=== PATIENT | male | born 1990 | race Caucasian/White ===

== ENCOUNTER 2017-05-26 16:46 | Observation (INO) | payer MEDICAID ==
[~2017-05-26] VITALS: Ht 167.6 cm; Wt 68.5 kg
[~2017-05-26 16:46] MED LIST: ALPR1TAB2 PO; BUPR-173 PO; BUPR100T6 PO; BUPR150T73 PO; BUPR8TAB SL; CARB100T3 PO; CLON2TAB PO; MIRT15TA PO; ZOLP10TA PO
[2017-05-26] MEDS ORDERED: LORazepam 1MG TABLET PO ONE (17:30)
[2017-05-26] MEDS ORDERED: LORazepam 1MG TABLET ONE (17:44)
[2017-05-26 17:58] LABS: HEMOGLOBIN 16.1 g/dL (13.7-18.0)
[2017-05-26 18:08] LABS: ASPARTATE AMINO TRANSFERASE 25 U/L (15-37); BLOOD UREA NITROGEN 15 mg/dL (7-18)
[2017-05-26 18:09] LABS: ACETAMINOPHEN < 2 mcg/mL (10-30)
[2017-05-26 18:10] LABS: DAU SCREEN DISCLAIMER
[2017-05-26] MEDS ORDERED: BUPR1FIL3 PO (20:38)
[2017-05-26] MEDS ORDERED: ZOLP10TA PO (20:39)
[2017-05-26] MEDS ORDERED: ZOLPIDEM 10MG TABLET PO PRN (21:00)
[2017-05-26] MEDS ORDERED: GABAPENTIN 100 MG CAPSULE PO ONE (21:00)
[2017-05-26] MEDS ORDERED: ZIPRASIDONE 20MG CAPSULE PO PRN (21:00)
[2017-05-26] MEDS ORDERED: ONDANSETRON ODT 4 MG PO PRN (21:00)
[2017-05-26] MEDS ORDERED: ZIPRASIDONE 20 MG INJ IM PRN (21:00)
[2017-05-26] MEDS ORDERED: ACETAMINOPHEN 325 MG TABLET PO PRN (21:00)
[2017-05-26] MEDS ORDERED: METHADONE 5 MG TABLET PO SCH (21:00)
[2017-05-26] MEDS: ALPRazolam 1MG TABLET PO SCH (23:29)
[2017-05-26] MEDS: NICOTINE 14MG/24 HR PATCH.TD24 TD SCH (23:29)
[2017-05-26] MEDS: METHADONE 10 MG TABLET PO SCH (23:29)
[2017-05-27 07:40] VITALS: BP 122/73
[2017-05-27] MEDS: ALPRazolam 1MG TABLET PO SCH ×3 (08:46→20:14)
[2017-05-27] MEDS: METHADONE 10 MG TABLET PO SCH ×3 (08:46→20:14)
[2017-05-27] MEDS: BUPROPION SR 150 MG TABLET PO SCH (08:47)
[2017-05-27 19:35] VITALS: BP 99/53
[2017-05-27] MEDS: NICOTINE 14MG/24 HR PATCH.TD24 TD SCH (20:14)
[2017-05-27] MEDS: ZOLPIDEM 5MG TABLET PO PRN (23:32)
[2017-05-28 08:21] VITALS: BP 99/53
[2017-05-28] MEDS: BUPROPION SR 150 MG TABLET PO SCH (09:00)
[2017-05-28] MEDS: ALPRazolam 1MG TABLET PO SCH ×3 (09:34→20:02)
[2017-05-28] MEDS: FOLIC ACID 1 MG TABLET PO SCH (09:34)
[2017-05-28] MEDS: MULTIVITAMIN 1 TABLET PO SCH (09:34)
[2017-05-28] MEDS: METHADONE 10 MG TABLET PO SCH ×3 (09:34→20:03)
[2017-05-28] MEDS: THIAMINE 100MG TABLET PO SCH (09:34)
[2017-05-28 20:00] VITALS: BP 97/57
[2017-05-28] MEDS: NICOTINE 14MG/24 HR PATCH.TD24 TD SCH (20:03)
[2017-05-28] MEDS: ZOLPIDEM 5MG TABLET PO PRN (22:10)
[2017-05-28] MEDS: DOCUSATE 100 MG CAPSULE PO PRN (22:13)
[2017-05-29 08:45] VITALS: BP 109/65
[2017-05-29] MEDS: BUPROPION SR 150 MG TABLET PO SCH (09:00)
[2017-05-29] MEDS: ALPRazolam 1MG TABLET PO SCH ×3 (09:00→20:47)
[2017-05-29] MEDS: METHADONE 10 MG TABLET PO SCH ×3 (09:01→20:47)
[2017-05-29] MEDS: MULTIVITAMIN 1 TABLET PO SCH (09:01)
[2017-05-29] MEDS: THIAMINE 100MG TABLET PO SCH (09:01)
[2017-05-29] MEDS: FOLIC ACID 1 MG TABLET PO SCH (09:01)
[2017-05-29] MEDS: DOCUSATE 100 MG CAPSULE PO PRN (09:10)
[2017-05-29] MEDS: POLYETHYLENE GLYCOL 17 GM PACKET PO SCH (14:20)
[2017-05-29] MEDS ORDERED: ZIPRASIDONE 20MG CAPSULE PO PRN (15:00)
[2017-05-29] MEDS ORDERED: ACETAMINOPHEN 325 MG TABLET PO PRN (15:00)
[2017-05-29] MEDS ORDERED: ONDANSETRON ODT 4 MG PO PRN (15:00)
[2017-05-29] MEDS ORDERED: ZIPRASIDONE 20 MG INJ IM PRN (15:00)
[2017-05-29 20:42] VITALS: BP 120/50
[2017-05-29] MEDS: NICOTINE 14MG/24 HR PATCH.TD24 TD SCH (20:46)
[2017-05-29] MEDS: ZOLPIDEM 5MG TABLET PO PRN (20:47)
[2017-05-30 08:12] VITALS: BP 97/56
[2017-05-30] MEDS: MULTIVITAMIN 1 TABLET PO SCH (08:19)
[2017-05-30] MEDS: FOLIC ACID 1 MG TABLET PO SCH (08:19)
[2017-05-30] MEDS: ALPRazolam 1MG TABLET PO SCH (08:19)
[2017-05-30] MEDS: THIAMINE 100MG TABLET PO SCH (08:20)
[2017-05-30] MEDS: POLYETHYLENE GLYCOL 17 GM PACKET PO SCH (08:21)
[2017-05-30] MEDS: METHADONE 10 MG TABLET PO SCH (08:25)
[2017-05-30] MEDS: BUPROPION SR 150 MG TABLET PO SCH (08:25)
== END 2017-05-30 10:32 ==
LOC: ED 18:42 → SUATTDRO 20:47 → EDIP 21:23 → 3E 21:26
PROVIDERS: ADMIT Family Medicine; ATTEND Family Medicine
DX: R45.851 Suicidal ideations (principal); F10.10 Alcohol abuse, uncomplicated; F11.23 Opioid dependence with withdrawal; F32.9 Major depressive disorder, single episode, unspecified; K59.00 Constipation, unspecified; F17.210 Nicotine dependence, cigarettes, uncomplicated
CPT/HCPCS: 36415; 80053; 80307; 80329; 85025; 93005; 99285; G0378; G0480

== ENCOUNTER 2018-06-08 08:37 | Emergency (ER) | payer MEDICAID ==
[~2018-06-08] VITALS: Ht 167.6 cm; Wt 67.9 kg
[~2018-06-08 08:37] MED LIST changes: +BUPR1FIL3 PO
[2018-06-08] MEDS ORDERED: SODIUM CHLORIDE FLUSH 10ML SYR IVF ONE (10:00)
[2018-06-08 10:44] LABS: ALBUMIN 3.6 g/dL (3.4-5.0); ANION GAP 9 mmol/L (5-15); CALCIUM 9.4 mg/dL (8.5-10.1); CHLORIDE 99 mmol/L (98-107); CREATININE 0.85 mg/dL (0.7-1.3)
[2018-06-08 10:50] LABS: MEAN CORPUSCULAR HEMOGLOBIN 31.9 pg (27.5-34.5); MEAN CORPUSCULAR HGB CONC 34.6 g/dL (33.2-36.2); MEAN CORPUSCULAR VOLUME 92.2 fL (81-97); MEAN PLATELET VOLUME 6.9 fL (7.4-10.4); PLATELET COUNT 414 x10^3/uL (130-400); RED BLOOD COUNT 5.11 x10^6/uL (4.38-5.82); RED CELL DISTRIBUTION WIDTH 13.5 % (9.4-14.8)
[2018-06-08 10:54] VITALS: BP 120/78
[2018-06-08] MEDS ORDERED: MAGNESIUM CITRATE 300ML ORAL SOL PO ONE (11:00)
[2018-06-08 11:01] LABS: BASOPHILS # (AUTO) 0.05 x10^3/uL (0-0.1); BASOPHILS % (AUTO) 1 % (0-1); EOSINOPHILS # (AUTO) 0.08 x10^3/uL (0-0.4); EOSINOPHILS % (AUTO) 1 % (1-7); LYMPHOCYTES # (AUTO) 1.66 x10^3/uL (1-3.4); LYMPHOCYTES % (AUTO) 16 % (22-44); MD SCAN; MONOCYTES % (AUTO) 7 % (2-9); NEUTROPHILS # (AUTO) 7.88 x10^3/uL (1.8-6.8); NEUTROPHILS % (AUTO) 76 % (42-75)
== END 2018-06-08 11:52 | disposition left against medical advice (07) ==
LOC: ED 09:57
DX: T18.5XXA Foreign body in anus and rectum, initial encounter (principal); Z00.00 Encounter for general adult medical examination without abnormal findings; X58.XXXA Exposure to other specified factors, initial encounter; Y93.89 Activity, other specified; Y92.89 Other specified places as the place of occurrence of the external cause; Y99.8 Other external cause status
CPT/HCPCS: 36415; 74018; 80048; 82040; 85025; 99285

== ENCOUNTER 2019-09-22 01:05 | Emergency (ER) | payer MEDICAID, OTHER ==
[~2019-09-22] VITALS: Ht 172.7 cm; Wt 75.0 kg
[2019-09-22] MEDS ORDERED: NALOXONE 1 MG/ML, 2ML ONE (01:10)
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
[2019-09-22 01:22] LABS: BASOPHILS # (AUTO) 0.06 x10^3/uL (0-0.1); BASOPHILS % (AUTO) 1 % (0-1); EOSINOPHILS % (AUTO) 1 % (1-7); LYMPHOCYTES # (AUTO) 4.22 x10^3/uL (1-3.4); LYMPHOCYTES % (AUTO) 39 % (22-44); MD NO; MEAN CORPUSCULAR HEMOGLOBIN 31.5 pg (27.5-34.5); MEAN CORPUSCULAR HGB CONC 33.4 g/dL (33.2-36.2); MEAN CORPUSCULAR VOLUME 94.4 fL (81-97); MEAN PLATELET VOLUME 8.3 fL (7.4-10.4); MONOCYTES # (AUTO) 0.73 x10^3/uL (0.2-0.8); MONOCYTES % (AUTO) 7 % (2-9); NEUTROPHILS # (AUTO) 5.61 x10^3/uL (1.8-6.8); NEUTROPHILS % (AUTO) 52 % (42-75); PLATELET COUNT 362 x10^3/uL (130-400); RED BLOOD COUNT 5.05 x10^6/uL (4.38-5.82); RED CELL DISTRIBUTION WIDTH 13.5 % (9.4-14.8)
[2019-09-22 01:35] LABS: ALANINE AMINOTRANSFERASE 32 U/L (12-78); ALBUMIN 3.9 g/dL (3.4-5.0); ANION GAP 5 mmol/L (5-15); CALCIUM 8.8 mg/dL (8.5-10.1); CHLORIDE 103 mmol/L (98-107); CREATININE 1.19 mg/dL (0.7-1.3)
[2019-09-22 01:37] LABS: ALKALINE PHOSPHATASE 124 U/L (45-117); BILIRUBIN,TOTAL 0.2 mg/dL (0.2-1.0); TOTAL PROTEIN 7.8 g/dL (6.4-8.2)
[2019-09-22 01:39] LABS: SALICYLATE LEVEL < 1.7 mg/dL (2.8-20.0)
--- NOTE | 2019-09-22 02:05 | NUR ---
PT TO ROOM 39, REPORT RECEIVED FROM JEANETTE SIGALA. PT DROWSY BUT ARROUSABLE TO VOICE AND CAN CARRY CONVERSATION. PT REPORTS "THE LAST THING I REMEMBER IS SHOOTING UP" "IT WAS A MIX OF METH AND HEROIN- BUT MAYBE IT HAD FENTANYL IN IT TOO" "I FEEL SO DUMB". BP/SPO2/ECG MONITORING IN PLACE. SPO2 >90% ON 2L BY NC. RR 17. PT W STRONG COUGH ON COMMAND.
--- NOTE | 2019-09-22 02:06 | NUR ---
CALL FROM INDIVIDUAL WHO FOUND PATIENT, STATES SHE HAS ALL HIS BELONGINGS AND WILL BE DROPPING IT OFF.
--- NOTE | 2019-09-22 02:46 | NUR ---
BREAK RN: PT SLEEPING. AROUSES TO VERBAL STIMULI AND TOUCH. DROWSY. RESPIRATORY EFFORT STILL STRONG. SAT 98% ON 2LPM. WILL CONTINUE TO MONITOR.
--- NOTE | 2019-09-22 03:30 | NUR ---
PT RESTING IN GURNEY W EYES CLOSED. ARROUSABLE TO VOICE.
[2019-09-22 04:30] VITALS: BP 113/62
--- NOTE | 2019-09-22 04:31 | NUR ---
PT CONTINUES TO REST IN RNEY. EVEN/REGULAR RESPIRATIONS NOTED. SPO2 >90% ON 2L BY NC. RR WNL.
--- NOTE | 2019-09-22 04:54 | NUR ---
PT RESTING IN GURNEY W/ EYES CLOSED. MOSTLY DROWSY; PT REQUIRING PHYSICAL STIM FOR ARROUSAL BUT WILL OPEN EYES ON COMMAND. SPO2 >90% ON RA. RR EVEN/UNLABORED, RR 16. REPORT TO JEANETTE SIGALA
--- NOTE | 2019-09-22 05:12 | NUR ---
REPORT RECEIVED FROM JEANETTE MOREIRA. ASSUMED CARE OF PT.
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
--- NOTE | 2019-09-22 05:32 | NUR ---
Patient/Caregiver given discharge instructions and they have confirmed that they understand the instructions. Patient ambulatory with steady gait.
--- NOTE | 2019-09-22 06:53 | NUR ---
PT STILL SLEEPING IN THE LOBBY OF THE ER. THIS RN VERIFIED WITH PT THAT HE HAS A RIDE HOME. HE STATES "YES MY MOM IS COMING TO GET ME, I'M WAITING FOR HER. I'M JUST TIRED. WILL YOU GUYS LEAVE ME ALONE". THIS RN ALSO CLARIFIED INTENTIONS WITH OVERDOSE AND IF IT WAS AN ATTEMPT TO HARM HIMSELF, PT RESPONDS "NO, I WASN'T DOING THAT INTENTIONALLY, I'M AN ADDICT".
== END 2019-09-22 05:34 | disposition home or self-care (01) ==
LOC: ED 01:11
DX: T40.1X1A Poisoning by heroin, accidental (unintentional), initial encounter (principal); T42.4X1A Poisoning by benzodiazepines, accidental (unintentional), initial encounter; J96.01 Acute respiratory failure with hypoxia; G92 Toxic encephalopathy; F11.129 Opioid abuse with intoxication, unspecified; Z72.9 Problem related to lifestyle, unspecified; Y92.89 Other specified places as the place of occurrence of the external cause
CPT/HCPCS: 36415; 80053; 80307; 85025; 99291

== ENCOUNTER 2019-10-10 11:25 | Emergency (ER) | payer OTHER ==
[~2019-10-10] VITALS: Ht 167.6 cm; Wt 72.1 kg
[2019-10-10 11:29] VITALS: BP 116/87
[2019-10-10 13:13] LABS: BASOPHILS # (AUTO) 0.03 x10^3/uL (0-0.1); BASOPHILS % (AUTO) 0 % (0-1); EOSINOPHILS # (AUTO) 0.08 x10^3/uL (0-0.4); EOSINOPHILS % (AUTO) 1 % (1-7); LYMPHOCYTES # (AUTO) 2.45 x10^3/uL (1-3.4); LYMPHOCYTES % (AUTO) 23 % (22-44); MD NO; MEAN CORPUSCULAR HEMOGLOBIN 30.8 pg (27.5-34.5); MEAN CORPUSCULAR HGB CONC 33.7 g/dL (33.2-36.2); MEAN CORPUSCULAR VOLUME 91.5 fL (81-97); MEAN PLATELET VOLUME 7.4 fL (7.4-10.4); MONOCYTES # (AUTO) 0.62 x10^3/uL (0.2-0.8); MONOCYTES % (AUTO) 6 % (2-9); NEUTROPHILS % (AUTO) 71 % (42-75); PLATELET COUNT 489 x10^3/uL (130-400); RED BLOOD COUNT 5.06 x10^6/uL (4.38-5.82); RED CELL DISTRIBUTION WIDTH 13.2 % (9.4-14.8)
[2019-10-10 13:21] LABS: ALANINE AMINOTRANSFERASE 16 U/L (12-78); ALBUMIN 3.7 g/dL (3.4-5.0); ANION GAP 8 mmol/L (5-15); CALCIUM 9.2 mg/dL (8.5-10.1); CHLORIDE 98 mmol/L (98-107); CREATININE 0.82 mg/dL (0.7-1.3)
[2019-10-10 13:26] LABS: ALKALINE PHOSPHATASE 83 U/L (45-117); BILIRUBIN,TOTAL 0.5 mg/dL (0.2-1.0); TOTAL PROTEIN 8.4 g/dL (6.4-8.2); TROPONIN I < 0.015 ng/mL (0.000-0.045)
== END 2019-10-10 14:03 | disposition home or self-care (01) ==
LOC: ED 12:45
DX: B34.9 Viral infection, unspecified (principal); R09.89 Other specified symptoms and signs involving the circulatory and respiratory systems
CPT/HCPCS: 36415; 71046; 80053; 84484; 85025; 93005; 99284

== ENCOUNTER 2019-11-30 21:20 | Emergency (ER) | payer SELFPAY ==
[~2019-11-30] VITALS: Ht 167.6 cm; Wt 78.0 kg
[2019-11-30 21:25] VITALS: BP 168/87
--- NOTE | 2019-11-30 21:40 | NUR ---
ASSESSMENT MADE. CHART UP FOR MD TO SEE.
--- NOTE | 2019-11-30 22:22 | NUR ---
PATIENT ANXIOUS. LAST METH INTAKE ( SMOKED ) TODAY.
--- NOTE | 2019-11-30 22:23 | NUR ---
PA AT BEDSIDE FOR PATIENT EVALUATION.
[2019-11-30] MEDS ORDERED: LORazepam 2 MG/ML, 1ML ONE (22:36)
--- NOTE | 2019-11-30 22:51 | NUR ---
MEDICATED FOR ANXIETY. URINE SENT TO LAB.
[2019-11-30] MEDS ORDERED: LORazepam 2 MG/ML, 1ML IM ONE (23:00)
[2019-11-30 23:02] LABS: CULTURE INDICATED? YES; MICROSCOPIC INDICATED
[2019-11-30] MEDS ORDERED: AZITHROMYCIN 500 MG TABLET PO ONE (23:30)
[2019-11-30] MEDS ORDERED: CEFTRIAXONE 250 MG IM ONE (23:30)
[2019-11-30] MEDS ORDERED: AZITHROMYCIN 500 MG TABLET ONE (23:34)
[2019-11-30] MEDS ORDERED: CEFTRIAXONE 250 MG ONE (23:34)
== END 2019-12-01 00:29 | disposition home or self-care (01) ==
LOC: ED 22:54
DX: A56.01 Chlamydial cystitis and urethritis (principal); A54.9 Gonococcal infection, unspecified; N30.00 Acute cystitis without hematuria; F11.20 Opioid dependence, uncomplicated; F15.20 Other stimulant dependence, uncomplicated; J02.8 Acute pharyngitis due to other specified organisms; B97.89 Other viral agents as the cause of diseases classified elsewhere; F17.210 Nicotine dependence, cigarettes, uncomplicated
CPT/HCPCS: 81001; 87081; 87086; 87491; 87591; 87880; 96372; 99284; J0696; J2060

== ENCOUNTER 2020-05-16 12:36 | Emergency (ER) | payer MEDICAID ==
[~2020-05-16] VITALS: Ht 167.6 cm; Wt 70.0 kg
[2020-05-16 12:43] VITALS: BP 140/90
--- NOTE | 2020-05-16 12:52 | NUR ---
PT ON ALL ROOM MONITORING, SEE TRIAGE. PT STATES HE WOULD LIKE TO DO DETOX AND ASKING TO GO TO [facility]-BEEN THERE PRIOR AND SEES DR FLORES. CALL LIGHT WITHIN REACH.
--- NOTE | 2020-05-16 14:04 | NUR ---
GEM PROVIDED, CALL LIGHT WITHIN REACH. VSS.
--- NOTE | 2020-05-16 14:39 | NUR ---
VSS. PT FOR RECHECK.
--- NOTE | 2020-05-16 15:39 | NUR ---
MIRANDA LAGUNA APRN TO SEE PT.
--- NOTE | 2020-05-16 16:19 | NUR ---
TAXI VOUCHER PROVIDED, PT DISCHARGED TO [facility]. COPY OF EKG AND CXR READ PROVIDED TO SHOW MEDICAL CLEARANCE.
== END 2020-05-16 16:24 | disposition home or self-care (01) ==
LOC: ED 14:30
DX: R07.89 Other chest pain (principal); F41.1 Generalized anxiety disorder; F11.20 Opioid dependence, uncomplicated; I44.5 Left posterior fascicular block
CPT/HCPCS: 71045; 93005; 99283

== ENCOUNTER 2020-06-02 03:35 | Emergency (ER) | payer MEDICAID ==
[~2020-06-02] VITALS: Ht 167.6 cm; Wt 70.5 kg
--- NOTE | 2020-06-02 04:03 | NUR ---
PT STATES HE IS FEELING SUCIDAL. PLAN IS TO JUMP OFF OF A BUILDING. PAST SA OVERDOSE ON HEROIN "A FEW YEARS BACK" PT CHANGED INTO A GOWN AND ALL PT BELONGINGS TAKEN AND PLACED INTO TWO BELONGINGS BAGS IN LOCKER IN HALLWAY. PT MADE AWARE OF NEED FOR URINE SAMPLE. ROOM SECURED WITH GARAGE QUINONEZ DOWN. SITTER AT DOORWAY FOR FREQUENT CHECKS. PT CALM AND COOPERATIVE.
[2020-06-02] MEDS ORDERED: LISD50CA3 PO (04:10)
[2020-06-02] MEDS ORDERED: ALPR2TAB2 PO (04:10)
[2020-06-02] MEDS ORDERED: BUPR-86 PO (04:10)
[2020-06-02 04:20] LABS: BASOPHILS % (AUTO) 0 % (0-1); EOSINOPHILS # (AUTO) 0.07 x10^3/uL (0-0.4); EOSINOPHILS % (AUTO) 1 % (1-7); LYMPHOCYTES # (AUTO) 2.13 x10^3/uL (1-3.4); LYMPHOCYTES % (AUTO) 31 % (22-44); MD NO; MEAN CORPUSCULAR HEMOGLOBIN 31.2 pg (27.5-34.5); MEAN CORPUSCULAR HGB CONC 34.1 g/dL (33.2-36.2); MEAN CORPUSCULAR VOLUME 91.5 fL (81-97); MEAN PLATELET VOLUME 8.5 fL (7.4-10.4); MONOCYTES # (AUTO) 0.23 x10^3/uL (0.2-0.8); MONOCYTES % (AUTO) 3 % (2-9); NEUTROPHILS # (AUTO) 4.48 x10^3/uL (1.8-6.8); NEUTROPHILS % (AUTO) 65 % (42-75); PLATELET COUNT 248 x10^3/uL (130-400); RED BLOOD COUNT 4.43 x10^6/uL (4.38-5.82); RED CELL DISTRIBUTION WIDTH 13.2 % (9.4-14.8)
[2020-06-02 04:33] LABS: ALBUMIN 3.6 g/dL (3.4-5.0); ANION GAP 6 mmol/L (5-15); CALCIUM 8.3 mg/dL (8.5-10.1); CHLORIDE 108 mmol/L (98-107); CREATININE 0.74 mg/dL (0.7-1.3); SALICYLATE LEVEL < 1.7 mg/dL (2.8-20.0)
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
--- NOTE | 2020-06-02 05:58 | NUR ---
ASKED PT TO TRY AND URINATE FOR UA SAMPLE PT STATES "I CAN'T PEE, I DON'T HAVE TO GO, I DON'T KNOW WHAT TO TELL YOU."
--- NOTE | 2020-06-02 06:37 | NUR ---
PT GIVEN WATER AT REQUEST AND ERP OKAY. TELEPSYCH COMPUTER MOVED INTO ROOM. PT REMAINS IN VIEW OF THE SITTER.
--- NOTE | 2020-06-02 07:02 | NUR ---
BEDSIDE REPORT GIVEN TO JEANETTE BRADY.
--- NOTE | 2020-06-02 07:30 | NUR ---
PT SLEEPING. ALL ROOM EQUIPMENT SECURED BEHIND PULL DOWN DOORS AND IN DIRECT VIEW OF SITTER.
[2020-06-02 08:30] VITALS: BP 113/54
--- NOTE | 2020-06-02 08:44 | NUR ---
PT STATES HE HAS BEEN FEELING SUICIDAL FOR A FEW DAYS AND THAT HE CAME HERE SO HE CAN GO TO [place]. PT VS UPDATED AND GIVEN BREAKFAST. C/O FEELING LIKE HE IS AWAITING MENTAL HEALTH EVAL BY [facility]. PT WANTING TO KNOW IF WE WILL START HIM BACK ON MEDS BECAUSE HE IS CONCERNED ABOUT HAVING WITHDRAWALS, NOTING HE TAKES 2 MG XANAX TWICE DAILY. PROVIDED BREAKFAST.
--- NOTE | 2020-06-02 09:09 | NUR ---
SPOKE WITH DR HINES ABOUT PT WANTING TO START HOME MEDS AND HIS CONCERN OF HAVING WITHDRAWALS. DR HINES STATES HE WANTS TO WAIT UNTIL [facility] MANAGER EVALUATES PT THIS MORNING
--- NOTE | 2020-06-02 10:43 | NUR ---
AWAKE AND PROVIDED COFFEE. REMAINS UPTIGHT THAT HE IS NOT GETTING XANAX. CONTINUE TO TRY TO EXPLAIN TO PT THAT HE WILL BE SEEN SOON AND THAT ER MD WANTS TO WAIT UNTIL THEN TO GIVE ANY MEDS.
[2020-06-02] MEDS ORDERED: METHOCARBAMOL 500 MG TABLET ONE (11:51)
[2020-06-02] MEDS ORDERED: LORazepam 1MG TABLET ONE (11:51)
[2020-06-02] MEDS ORDERED: LORazepam 1MG TABLET PO SCH (12:00)
[2020-06-02] MEDS ORDERED: METHOCARBAMOL 500 MG TABLET PO PRN (12:00)
--- NOTE | 2020-06-02 12:01 | NUR ---
AFTER EVALUATED BY LILY MENDOZA ORDERED.
[2020-06-02 12:51] LABS: AMPHETAMINE SCREEN, URINE Positive (Negative); BARBITURATE SCREEN, URINE Negative (Negative); BENZODIAZEPINE SCREEN, URINE Negative (Negative); CANNABINOID SCREEN, URINE Negative (Negative); COCAINE SCREEN, URINE Negative (Negative); METHADONE SCREEN, URINE Negative (Negative); OPIATE SCREEN, URINE Positive (Negative)
--- NOTE | 2020-06-02 13:06 | NUR ---
PT WATCHING TV AND EATING LUNCH
--- NOTE | 2020-06-02 15:01 | NUR ---
TASK RN: PT MOVED TO ROOM 01.
--- NOTE | 2020-06-02 15:09 | NUR ---
RECIEVED REPORT FROM ALBERT REID. PT RESTING CALMLY IN BED A THIS TIME. NO STATED NEEDS WHEN PT MOVED TO ROOM. SITTER AT DOO. WILL CONTINUE TO MONITOR.
--- NOTE | 2020-06-02 16:36 | NUR ---
REPORT TO DEAN REID FOR ROOM 380
== END 2020-06-02 17:25 ==
LOC: ED 05:24
DX: R45.851 Suicidal ideations (principal); F15.10 Other stimulant abuse, uncomplicated; F11.10 Opioid abuse, uncomplicated; F17.210 Nicotine dependence, cigarettes, uncomplicated
CPT/HCPCS: 36415; 80048; 80307; 82040; 85025; 99406

== ENCOUNTER 2020-06-02 16:44 | Inpatient (IN) | payer MEDICAID ==
[~2020-06-02] VITALS: Ht 167.6 cm; Wt 70.5 kg
[~2020-06-02 16:44] MED LIST changes: +ALPR2TAB2 PO; +BUPR-86 PO; +LISD50CA3 PO
[2020-06-02 17:00] VITALS: BP 122/80
[2020-06-02] MEDS ORDERED: NICOTINE 21 MG/24 HR PATCH.TD24 ONE (17:09)
[2020-06-02] MEDS ORDERED: DOCUSATE 100 MG CAPSULE PO PRN (17:30)
[2020-06-02] MEDS ORDERED: BISACODYL 10 MG SUPP PR PRN (17:30)
[2020-06-02] MEDS ORDERED: POLYETHYLENE GLYCOL 17 GM PACKET PO PRN (17:30)
[2020-06-02] MEDS: NICOTINE 21 MG/24 HR PATCH.TD24 TD SCH (17:30)
[2020-06-02] MEDS ORDERED: PLEASE ENTER HEIGHT AND WEIGHT MC SCH (17:30)
[2020-06-02] MEDS ORDERED: ALPRazolam 1MG TAB PO ONE (18:30)
[2020-06-02 19:55] VITALS: BP 130/79
[2020-06-02 20:02] LABS: MICROSCOPIC NOT IND
[2020-06-02] MEDS: ONDANSETRON ODT 4 MG PO PRN (21:59)
[2020-06-02] MEDS: ACETAMINOPHEN 325 MG TABLET PO PRN (21:59)
[2020-06-02] MEDS: HYDROXYZINE PAMOATE 50MG CAP PO PRN (21:59)
[2020-06-03] MEDS: ONDANSETRON ODT 4 MG PO PRN (03:58)
[2020-06-03] MEDS: HYDROXYZINE PAMOATE 50MG CAP PO PRN (03:58)
[2020-06-03] MEDS: ACETAMINOPHEN 325 MG TABLET PO PRN (03:58)
[2020-06-03 06:34] LABS: CHOL/HDL RATIO 2.7; FREE T4 (FREE THYROXINE) 1.03 ng/dL (0.76-1.46); LDL/HDL RATIO 1.3 (0.5-3.0)
[2020-06-03] MEDS ORDERED: METHOCARBAMOL 500 MG TABLET ONE (09:08)
[2020-06-03] MEDS ORDERED: LORazepam 1MG TABLET ONE (09:08)
[2020-06-03] MEDS ORDERED: METHOCARBAMOL 500 MG TABLET PO PRN (09:30)
[2020-06-03] MEDS ORDERED: LORazepam 1MG TABLET PO PRN (09:30)
[2020-06-03] MEDS ORDERED: NICOTINE 21 MG/24 HR PATCH.TD24 TD ONE (11:00)
[2020-06-03] MEDS ORDERED: BUPRENORPHINE/NALOXONE 2-0.5MG SL ONE ×4 (11:44→20:56)
[2020-06-03] MEDS: BUPRENORPHINE/NALOXONE 8-2MG SL SCH ×2 (11:58→20:54)
[2020-06-03] MEDS: NICOTINE 21 MG/24 HR PATCH.TD24 TD SCH ×2 (15:43→20:52)
[2020-06-03] MEDS: ALPRazolam 1MG TAB PO PRN ×2 (15:43→19:45)
[2020-06-03] MEDS: METHOCARBAMOL 750 MG TABLET PO PRN (19:45)
[2020-06-03 19:48] VITALS: BP 113/77
[2020-06-04 07:00] VITALS: BP 107/71
[2020-06-04] MEDS ORDERED: BUPRENORPHINE HCL/NALOXONE 8-2MG FILM SL SCH (09:00)
[2020-06-04] MEDS: ALPRazolam 1MG TAB PO PRN ×3 (10:48→21:31)
[2020-06-04] MEDS: HYDROXYZINE PAMOATE 50MG CAP PO PRN (14:49)
[2020-06-04] MEDS: METHOCARBAMOL 750 MG TABLET PO PRN (14:50)
[2020-06-04] MEDS: NICOTINE 21 MG/24 HR PATCH.TD24 TD SCH (16:06)
[2020-06-04 20:14] VITALS: BP 124/75
[2020-06-04] MEDS: BUPRENORPHINE/NALOXONE 2-0.5MG SL SCH (20:20)
[2020-06-05] MEDS: ALPRazolam 1MG TAB PO PRN ×3 (02:38→11:24)
[2020-06-05 07:34] VITALS: BP 97/61
[2020-06-05 07:48] VITALS: BP 100/72
[2020-06-05] MEDS: BUPRENORPHINE/NALOXONE 2-0.5MG SL SCH (08:53)
== END 2020-06-05 11:55 | disposition home or self-care (01) | DRG 885 ==
LOC: 3E 17:01
PROVIDERS: ADMIT Psychiatry & Neurology Psychosomatic Medicine; ATTEND Psychiatry & Neurology Psychosomatic Medicine
DX: F31.30 Bipolar disorder, current episode depressed, mild or moderate severity, unspecified (principal); F11.20 Opioid dependence, uncomplicated; F15.10 Other stimulant abuse, uncomplicated; F17.200 Nicotine dependence, unspecified, uncomplicated; F41.1 Generalized anxiety disorder; F43.10 Post-traumatic stress disorder, unspecified; F90.9 Attention-deficit hyperactivity disorder, unspecified type; Z79.899 Other long term (current) drug therapy; Z82.49 Family history of ischemic heart disease and other diseases of the circulatory system
CPT/HCPCS: 36415; 87806; J0572; J0574; 80061; 81003; 82140; 84439; 84443; 86803; 87521; Q0162; G0475